=== PATIENT | male | born 1985 | race African-American/Black ===

== ENCOUNTER 2017-01-23 09:30 | Emergency (ER) | payer SELFPAY ==
[~2017-01-23] VITALS: Ht 172.7 cm; Wt 91.0 kg
[2017-01-23] MEDS ORDERED: LORAZEPAM 1MG TABLET PO ONE (11:45)
[2017-01-23 13:00] VITALS: BP 133/85
== END 2017-01-23 13:03 | disposition home or self-care (01) ==
LOC: ER 10:06
DX: F41.0 Panic disorder [episodic paroxysmal anxiety] (principal); F17.200 Nicotine dependence, unspecified, uncomplicated
CPT/HCPCS: 93005; 99284